=== PATIENT | male | born 1990 | race Two or more races ===

== ENCOUNTER 2022-08-11 09:58 | Outpatient (CLI) | payer OTHER | END 2022-08-11 10:08 | disposition home or self-care (01) | LOC: SONOGRAMA 09:58 | PROVIDERS: ATTEND Surgery | DX: R22.2 Localized swelling, mass and lump, trunk (principal) ==

== ENCOUNTER 2023-03-16 09:55 | Outpatient (CLI) | payer OTHER | END 2023-03-16 10:12 | disposition home or self-care (01) | LOC: SONOGRAMA 09:55 | PROVIDERS: ATTEND Surgery | DX: K40.30 Unilateral inguinal hernia, with obstruction, without gangrene, not specified as recurrent (principal) ==

== ENCOUNTER 2023-04-19 05:57 | Day surgery (SDC) | payer OTHER ==
[2023-04-12 09:17] LABS: HEMATOCRIT 47.7 % (39.0-48.0); HEMOGLOBIN 16.7 g/dL (13-16.00); MEAN CELL VOLUME 85.8 fL (80.0-100.00); MEAN CORPUSCULAR HEMOGLOBIN 30.1 pg (27.00-32.0); MEAN CORPUSCULAR HGB CONC 35.1 g/dl (32.0-36.0); PLATELET COUNT 209 K/uL (150-450); RED BLOOD COUNT 5.56 M/uL (4.00-6.00); RED CELL DISTRIBUTION WIDTH 13.4 % (11.5-14.5)
[2023-04-12 09:23] LABS: URINE APPEARANCE Clear; URINE BILIRRUBIN Negative (NEGATIVE); URINE BLOOD Negative; URINE COLOR Yellow; URINE GLUCOSE Negative (NEGATIVE); URINE LEUKOCYTE Negative; URINE NITRATE Negative; URINE PROTEIN Negative (NEGATIVE); URINE UROBILINOGEN 0.2 E.U./dl
[2023-04-12 09:25] LABS: URINE BACTERIA 11.3 uL (0.0-1933); URINE RBC 5.6 uL (0.0-20.8)
[2023-04-12 09:29] LABS: URINE EPITHELIAL CELLS 0.7 uL (0.0-38.8); URINE WBC 0.3 uL (0.0-23.2)
[2023-04-12 09:37] LABS: INR 1.06; PARTIAL THROMBOPLASTIN TIME 29.6 SECONDS (22.0-34.0); PROTHROMBIN TIME 11.1 SECONDS (9.0-11.5)
[2023-04-12 10:19] LABS: BILIRUBIN TOTAL 0.74 mg/dL (0.3-1.2); CALCIUM 10.1 mg/dL (8.5-10.1); CREATININE SERUM 1.01 mg/dL (0.70-1.30); GFR 86.16; POTASSIUM 4.35 mEq/L (3.5-5.1)
[2023-04-19] MEDS ORDERED: CEFAZOLIN SODIUM 1,000 MG VIAL ONE (10:18)
[2023-04-19] MEDS ORDERED: CEFAZOLIN SODIUM 1,000 MG VIAL IV ONE (11:15)
== END 2023-04-19 15:55 | disposition home or self-care (01) ==
LOC: CIR.AMB 05:57
PROVIDERS: ATTEND Surgery
DX: K40.30 Unilateral inguinal hernia, with obstruction, without gangrene, not specified as recurrent (principal); Z20.822 Contact with and (suspected) exposure to COVID-19